=== PATIENT | male | born 1995 | race Hispanic/Latino ===

== ENCOUNTER 2016-06-18 15:13 | Emergency (ER) | payer OTHER ==
[2016-06-18] MEDS ORDERED: ONDANSETRON 4MG/2ML VIAL (J2405) As Ordered ONE (15:40)
[2016-06-18] MEDS ORDERED: MORPHINE 4 MG/ML 1ML SYRINGE As Ordered ONE (15:55)
[2016-06-18 16:06] LABS: MEAN CORPUSCULAR HEMOGLOBIN 30.1 pg (27.0-33.0); MEAN CORPUSCULAR HGB CONC 33.5 g/dl (32.0-36.5); MEAN CORPUSCULAR VOLUME 89.9 fl (80.0-96.0); PLATELET COUNT, AUTOMATED 213 k/mm3 (150-450); RED CELL DISTRIBUTION WIDTH 12.7 % (11.5-14.5); WHITE BLOOD COUNT 13.3 K/mm3 (4.0-10.0)
[2016-06-18 16:23] LABS: ALBUMIN 4.4 GM/DL (3.2-5.2); ALBUMIN/GLOBULIN RATIO 1.33 (1.00-1.93); ALKALINE PHOSPHATASE 94 U/L (45-117); ALT/SGPT 50 U/L (12-78); ANION GAP 5 MEQ/L (8-16); AST/SGOT 48 U/L (15-37); BILIRUBIN,DIRECT 0.2 MG/DL (0.0-0.2); BLOOD UREA NITROGEN 18 MG/DL (7-18); CALCIUM LEVEL 9.3 MG/DL (8.5-10.1); CARBON DIOXIDE LEVEL 30 MEQ/L (21-32); CHLORIDE LEVEL 105 MEQ/L (98-107); GLOMERULAR FILTRATION RATE > 60.0 (>60); GLUCOSE, FASTING 112 MG/DL (70-105); POTASSIUM SERUM 4.6 MEQ/L (3.5-5.1); SODIUM LEVEL 140 MEQ/L (136-145); TOTAL PROTEIN 7.7 GM/DL (6.4-8.2)
[2016-06-18 16:33] LABS: BANDS 2 % (< 11); EOSINOPHILS 1 % (0-5)
--- NOTE | 2016-06-18 17:57 | EDDOCDS ---
Physician Documentation [facility] Name: Sher Bowen Age: 20 yrs Sex: Male : 1995 Arrival Date: 06/18/2016 Time: 15:13 Bed I4 / M4 [facility] Disposition: 06/18/16 17:44 Discharged to Home/Self Care. Impression: Nausea and vomiting, Diarrhea, unspecified. - Condition is Stable. - Discharge Instructions: Food Poisoning, Viral Gastroenteritis. - Prescriptions for ZOFRAN ODT 4 mg Oral - dissolve 1 tablet by ORAL route every 8 hours As needed do not chew, do not swallow whole; 10 tablet. - Medication Reconciliation, Local Pharmacy Hours form. - [facility]; When: Call to arrange an appointment; Reason: Recheck today's complaints. - Problem is new. - Symptoms have improved. Historical: - Allergies: no known allergies; - Home Meds: 1. loperamide 2 mg Oral tab 2 tabs as needed - PMHx: none; - PSHx: none; - Social history: Smoking status: Patient uses tobacco products, light tobacco smoker. No barriers to communication noted, The patient speaks fluent Montserratian, Speaks appropriately for age. - Family history: Not pertinent. - : The pt / caregiver states he / she is not on anticoagulants. Home medication list is obtained from the patient. - Exposure Risk Screening:: None identified. Vital Signs: 06/18 15:15 BP 116 / 62; Pulse 90; Resp 18; Temp 98.6; Pulse Ox 98% ; Weight 92.99 kg / 205.01 lbs; elp Height 6 ft. 4 in. (193.04 cm); 17:16 BP 122 / 58; Pulse 77; Resp 18; Temp 99.4(O); Pulse Ox 100% on R/A; Pain 0/10; jmb 15:15 Body Mass Index 24.95 (92.99 kg, 193.04 cm) elp MDM: 15:39 IV Saline Lock ordered. ar2 15:39 NS 0.9% 1000 ml IV at bolus once ordered. ar2 15:39 Ondansetron 4 mg IVP once ordered. ar2 15:40 CBC with Diff Ordered. EDMS 15:40 MED Profile Ordered. EDMS 15:40 Liver Profile Ordered. EDMS 15:52 morphine 4 mg IVP once ordered. ar2 15:59 LIPASE Ordered. EDMS 16:08 DIFFERENTIAL NO CHARGE Ordered. EDMS 16:41 Financial registration complete. [email or web address] 17:09 [facility] Payment Agreement was scanned into [employer] and attached to record. [email or web address] 17:15 CBC with Diff Reviewed. ar2 17:15 MED Profile Reviewed. ar2 17:15 Liver Profile Reviewed. ar2 17:15 LIPASE Reviewed. ar2 17:15 PLATELET ESTIMATE Reviewed. ar2 17:26 Fluid Challenge ordered. ar2 Administered Medications: 15:52 CANCELLED (Other Intervention Used): morphine 2 mg IVP once ar2 15:53 Drug: NS 0.9% 1000 ml [sodium chloride 0.9 % intravenous solution] Route: IV; Rate: jmb bolus; Site: right antecubital; 15:53 Drug: Ondansetron 4 mg [ondansetron HCl 2 mg/mL intravenous solution (2 mL)] Route: jmb IVP; Site: right antecubital; 15:57 Drug: morphine 4 mg [morphine 4 mg/mL intravenous cartridge (1 mL)] Route: IVP; Site: b right antecubital; Signatures: Dispatcher [employer] EDMS Evens Jiang RN RN mlb1 Jameson Hernández PA-C PAJose ar2 Vitor Rankin RN RN jmb Sammi Ocasio, Reg Reg [email or web address] The chart was reviewed and I authenticate all verbal orders and agree with the evaluation and treatment provided.Corrections: (The following items were deleted from the chart) 15:51 15:39 Fluid Challenge ordered. ar2 ar2 15:52 15:52 morphine 2 mg IVP once ordered. ar2 ar2 15:59 15:55 LIPASE+LAB ordered. EDMS EDMS Attachments: 17:09 [facility] Payment Agreement [email or web address] MTDD
--- NOTE | 2016-06-18 17:57 | EDDOCDS ---
Nurse's Notes [facility] Name: Sher Bowen Age: 20 yrs Sex: Male : 1995 Arrival Date: 06/18/2016 Time: 15:13 Bed I4 / M4 [facility] Diagnosis: Nausea and vomiting;Diarrhea, unspecified Presentation: 06/18 15:16 Presenting complaint: Patient states: N/V/D with lower abdominal pain began this am. mlb1 Adult Sepsis Screening: The patient does not have new or worsening altered mentation. Patient's respiratory rate is less than 22. Systolic blood pressure is greater than 100. Patient has a qSOFA score of 0- Negative Sepsis Screen. Suicide/Homicide risk assessment- the patient denies having any suicidal and/or homicidal ideations and does not present with any other emotional, behavioral or mental health complaints. Status: The patient is an active duty loan services professional. Transition of care: patient was not received from another setting of care. 15:16 Acuity: ARIELLA Level 3 mlb1 15:16 Method Of Arrival: Walkin/Carried/Asstd mlb1 Triage Assessment: 15:18 General: Appears distressed, Behavior is appropriate for age, cooperative. Pain: mlb1 Location: right lower quadrant and left lower quadrant Pain currently is 8 out of 10 on a pain scale. Pt Declines HIV testing. GI: Reports diarrhea, nausea, vomiting. Historical: - Allergies: no known allergies; - Home Meds: 1. loperamide 2 mg Oral tab 2 tabs as needed - PMHx: none; - PSHx: none; - Social history: Smoking status: Patient uses tobacco products, light tobacco smoker. No barriers to communication noted, The patient speaks fluent Kyrgyz, Speaks appropriately for age. - Family history: Not pertinent. - : The pt / caregiver states he / she is not on anticoagulants. Home medication list is obtained from the patient. - Exposure Risk Screening:: None identified. Screenin:54 Screening information is obtained from the patient. Fall risk: No risks identified. jmb Assistance ADL's: requires no assistance with activities of daily living. Abuse/DV Screen: The patient / caregiver reports he/she is: not in a situation that causes fear, pain or injury. Nutritional screening: No deficits noted. home support is adequate. 17:48 Advance Directives: Currently, there is no health care proxy. There is no active DNR jmb order. There is no living will. There is no Power of Account Solutions Analyst. Assessment: 15:54 General: Appears uncomfortable, Behavior is appropriate for age, cooperative. Pain: jmb Location: abdomen and left lower quadrant and right lower quadrant Pain currently is 8 out of 10 on a pain scale. Neurological: Level of Consciousness is awake, alert, obeys commands, Oriented to person, place, time, Plaster Machine Operator are equal bilaterally Speech is normal, Facial symmetry appears normal, Facial symmetry: tongue is midline. Cardiovascular: Capillary refill < 3 seconds Heart tones S1 S2 present Pulses are all present. Rhythm is regular. Respiratory: Airway is patent Respiratory effort is even, unlabored, Respiratory pattern is regular, symmetrical, Breath sounds are clear bilaterally. GI: Abdomen is non- distended Bowel sounds present X 4 quads. Abd is soft X 4 quads. Derm: Skin is normal. Musculoskeletal: Range of motion intact in all extremities. 16:39 General: Appears in no apparent distress, Behavior is appropriate for age, cooperative. jmb Neurological: Level of Consciousness is awake, alert, obeys commands, Oriented to person, place, time. Respiratory: Airway is patent Respiratory effort is even, unlabored, Respiratory pattern is regular, symmetrical. 17:20 General: Appears in no apparent distress, comfortable, Behavior is appropriate for age, jmb cooperative, Patient laying on stretcher, appears comfortable,. appears asleep, easy to arise. NO voiced complaints at this time. . Pain: Denies pain. Neurological: Level of Consciousness is awake, alert, obeys commands, Oriented to person, place, time. Respiratory: Airway is patent Respiratory effort is even, unlabored, Respiratory pattern is regular, symmetrical. 17:48 General: Patient instructed on discharge instructions. Patient asked if there were any b questions regarding dishcarge, patient stated no. IV discontinued per hospital policy. Patient signed discharge instructions. Patient discharged in stable condition. . Vital Signs: 15:15 BP 116 / 62; Pulse 90; Resp 18; Temp 98.6; Pulse Ox 98% ; Weight 92.99 kg; Height 6 ft. elp 4 in. (193.04 cm); 17:16 BP 122 / 58; Pulse 77; Resp 18; Temp 99.4(O); Pulse Ox 100% on R/A; Pain 0/10; jmb 15:15 Body Mass Index 24.95 (92.99 kg, 193.04 cm) elp Vitals: 15:15 Log In Time: June 18, 2016 at 15:13. elp ED Course: 15:14 Patient visited by Neelam Guan PCA. elp 15:14 Patient moved to Waiting elp 15:15 [facility] is Private Physician. elp 15:16 Patient visited by Neelam Guan PCA. elp 15:16 Patient visited by Evens Jiang, RN. mlb1 15:16 Patient moved to Pre RCE elp 15:16 Triage Initiated mlb1 15:18 Patient visited by Evens Jiang, RN. mlb1 15:18 Patient moved to Triage 2 mlb1 15:33 Jameson Hernández PA-C is [facility]. ar2 15:33 Carolann Cornejo MD is Attending Physician. ar2 15:33 Patient visited by Jameson Hernández PA-C. ar2 15:39 Patient moved to I4 / M4 ck1 15:53 Liver Profile Sent. jmb 15:53 MED Profile Sent. jmb 15:54 The patient / caregiver is instructed regarding the plan of care and ED course. jmb 15:54 CBC with Diff Sent. jmb 15:54 Inserted saline lock: 20 gauge in right forearm and blood collected. The patient jmb tolerated the procedure well. Labs drawn. (by ED staff). Sent per order to lab. 15:57 Patient visited by Vitor Rankin RN. jmb 16:01 LIPASE Sent. jmb 16:09 DIFFERENTIAL NO CHARGE Sent. jmb 16:39 Patient visited by Vitor Rankin RN. jmb 17:09 [facility] Payment Agreement was scanned into [employer] and attached to record. [email or web address] 17:20 Patient visited by Vitor Rankin RN. jmb 17:43 [facility] is Referral Physician. ar2 17:48 Discontinued lock intact, bleeding controlled, pressure dressing applied, No jmb redness/swelling at site. No procedures done that require assistance. Administered Medications: 15:52 CANCELLED (Other Intervention Used): morphine 2 mg IVP once ar2 15:53 Drug: NS 0.9% 1000 ml [sodium chloride 0.9 % intravenous solution] Route: IV; Rate: jmb bolus; Site: right antecubital; 15:53 Drug: Ondansetron 4 mg [ondansetron HCl 2 mg/mL intravenous solution (2 mL)] Route: jmb IVP; Site: right antecubital; 15:57 Drug: morphine 4 mg [morphine 4 mg/mL intravenous cartridge (1 mL)] Route: IVP; Site: jmb right antecubital; Order Results: Lab Order: CBC with Diff; SPEC'M 06/18/16 15:49 Test: WHITE BLOOD COUNT; Value: 13.3; Range: 4.0-10.0; Abnormal: Above high normal; Units: K/mm3; Status: F Test: RED BLOOD COUNT; Value: 5.39; Range: 4.30-6.10; Units: M/mm3; Status: F Test: HEMOGLOBIN; Value: 16.2; Range: 14.0-18.0; Units: g/dl; Status: F Test: HEMATOCRIT; Value: 48.4; Range: 42.0-52.0; Units: %; Status: F Test: MEAN CORPUSCULAR VOLUME; Value: 89.9; Range: 80.0-96.0; Units: fl; Status: F Test: MEAN CORPUSCULAR HEMOGLOBIN; Value: 30.1; Range: 27.0-33.0; Units: pg; Status: F Test: MEAN CORPUSCULAR HGB CONC; Value: 33.5; Range: 32.0-36.5; Units: g/dl; Status: F Test: RED CELL DISTRIBUTION WIDTH; Value: 12.7; Range: 11.5-14.5; Units: %; Status: F Test: PLATELET COUNT, AUTOMATED; Value: 213; Range: 150-450; Units: k/mm3; Status: F Test: NEUTROPHILS; Value: 82; Range: 35-75; Abnormal: Above high normal; Units: %; Status: F Test: BANDS; Value: 2; Range: < 11; Units: %; Status: F Test: LYMPHOCYTES; Value: 1; Range: 16-52; Abnormal: Below low normal; Units: %; Status: F Test: MONOCYTES; Value: 12; Range: 0-8; Abnormal: Above high normal; Units: %; Status: F Test: EOSINOPHILS; Value: 1; Range: 0-5; Units: %; Status: F Test: ATYPICAL LYMPH; Value: 2; Range: 0-5; Units: %; Status: F Lab Order: MED Profile; SPEC'06/18/16 15:49 Test: GLUCOSE, FASTING; Value: 112; Range: 70-105; Abnormal: Above high normal; Units: MG/DL; Status: F Test: BLOOD UREA NITROGEN; Value: 18; Range: 7-18; Units: MG/DL; Status: F Test: CREATININE FOR GFR; Value: 1.20; Range: 0.70-1.30; Units: MG/DL; Status: F Test: GLOMERULAR FILTRATION RATE; Value: > 60.0; Range: >60; Status: F Test: SODIUM LEVEL; Value: 140; Range: 136-145; Units: MEQ/L; Status: F Test: POTASSIUM SERUM; Value: 4.6; Range: 3.5-5.1; Units: MEQ/L; Status: F Test: CHLORIDE LEVEL; Value: 105; Range: 98-107; Units: MEQ/L; Status: F Test: CARBON DIOXIDE LEVEL; Value: 30; Range: 21-32; Units: MEQ/L; Status: F Test: ANION GAP; Value: 5; Range: 8-16; Abnormal: Below low normal; Units: MEQ/L; Status: F Test: CALCIUM LEVEL; Value: 9.3; Range: 8.5-10.1; Units: MG/DL; Status: F Test Note: ; Units are mL/min/1.73 m2 Chronic Kidney Disease Staging per NKF: Stage I & II GFR >=60 Normal to Mildly Decreased Stage III GFR 30-59 Moderately Decreased Stage IV GFR 15-29 Severely Decreased Stage V GFR <15 Very Little GFR Left ESRD GFR <15 on FREEDOM OF INFORMATION OFFICER Lab Order: Liver Profile; SPEC'06/18/16 15:49 Test: AST/SGOT; Value: 48; Range: 15-37; Abnormal: Above high normal; Units: U/L; Status: F Test: ALT/SGPT; Value: 50; Range: 12-78; Units: U/L; Status: F Test: ALKALINE PHOSPHATASE; Value: 94; Range: 45-117; Units: U/L; Status: F Test: BILIRUBIN,TOTAL; Value: 1.0; Range: 0.2-1.0; Units: MG/DL; Status: F Test: BILIRUBIN,DIRECT; Value: 0.2; Range: 0.0-0.2; Units: MG/DL; Status: F Test: TOTAL PROTEIN; Value: 7.7; Range: 6.4-8.2; Units: GM/DL; Status: F Test: ALBUMIN; Value: 4.4; Range: 3.2-5.2; Units: GM/DL; Status: F Test: ALBUMIN/GLOBULIN RATIO; Value: 1.33; Range: 1.00-1.93; Status: F Lab Order: LIPASE; SPEC'M 06/18/16 15:49 Test: LIPASE; Value: 69; Range: 73-393; Abnormal: Below low normal; Units: U/L; Status: F Lab Order: PLATELET ESTIMATE; SPEC'M 06/18/16 15:49 Test: PLATELET ESTIMATE; Value: NORMAL; Range: NORMAL; Status: F Outcome: 17:44 Discharge ordered by Provider. ar2 17:48 Discharge Assessment: Patient awake, alert and oriented x 3. No cognitive and/or jmb functional deficits noted. Patient verbalized understanding of disposition instructions. Patient awake and alert. obeys commands, Oriented to person, place and time. Patient verbalized understanding of disposition instructions. Patient has no functional deficits. patient administered narcotics - yes. Pt provided with safe discharge. The following High Risk Discharge criteria are identified: None. Discharged to home ambulatory, with significant other. Condition: stable Condition: improved. Discharge instructions given to patient, Instructed on discharge instructions, follow up and referral plans. medication usage, Demonstrated understanding of instructions, medications, Pt was receptive of discharge instructions/ teaching. Prescriptions given X 1. No special radiology studies were completed. Property sent home with patient. 17:56 Patient left the ED. wilburb Signatures: Evens Jiang RN RN mlb1 Carolynn SimmonsRN RN ck1 Jameson Hernández PA-C PA-C ar2 Neelam Guan, WIRE TURNING MACHINE OPERATOR WIRE TURNING MACHINE OPERATOR Vitor Bray RN RN jmb Sorenson, Kimberly, Reg Reg [email or web address] Corrections: (The following items were deleted from the chart) 15:59 15:57 LIPASE+LAB sent. jmb EDMS MTDD
--- NOTE | 2016-06-20 18:58 | EDDOCDS ---
Nurse's Notes [facility] Name: Sher Bowen Age: 20 yrs Sex: Male : 1995 Arrival Date: 06/18/2016 Time: 15:13 Bed I4 / M4 Private [facility] Diagnosis: Nausea and vomiting;Diarrhea, unspecified Presentation: 06/18 15:16 Presenting complaint: Patient states: N/V/D with lower abdominal pain began this am. mlb1 Adult Sepsis Screening: The patient does not have new or worsening altered mentation. Patient's respiratory rate is less than 22. Systolic blood pressure is greater than 100. Patient has a qSOFA score of 0- Negative Sepsis Screen. Suicide/Homicide risk assessment- the patient denies having any suicidal and/or homicidal ideations and does not present with any other emotional, behavioral or mental health complaints. Status: The patient is an active duty business services representative. Transition of care: patient was not received from another setting of care. 15:16 Acuity: ARIELLA Level 3 mlb1 15:16 Method Of Arrival: Walkin/Carried/Asstd mlb1 Triage Assessment: 15:18 General: Appears distressed, Behavior is appropriate for age, cooperative. Pain: mlb1 Location: right lower quadrant and left lower quadrant Pain currently is 8 out of 10 on a pain scale. Pt Declines HIV testing. GI: Reports diarrhea, nausea, vomiting. Historical: - Allergies: no known allergies; - Home Meds: 1. loperamide 2 mg Oral tab 2 tabs as needed - PMHx: none; - PSHx: none; - Social history: Smoking status: Patient uses tobacco products, light tobacco smoker. No barriers to communication noted, The patient speaks fluent Thai, Speaks appropriately for age. - Family history: Not pertinent. - : The pt / caregiver states he / she is not on anticoagulants. Home medication list is obtained from the patient. - Exposure Risk Screening:: None identified. Screenin:54 Screening information is obtained from the patient. Fall risk: No risks identified. jmb Assistance ADL's: requires no assistance with activities of daily living. Abuse/DV Screen: The patient / caregiver reports he/she is: not in a situation that causes fear, pain or injury. Nutritional screening: No deficits noted. home support is adequate. 17:48 Advance Directives: Currently, there is no health care proxy. There is no active DNR jmb order. There is no living will. There is no Power of Pipe Line Inspector. Assessment: 15:54 General: Appears uncomfortable, Behavior is appropriate for age, cooperative. Pain: jmb Location: abdomen and left lower quadrant and right lower quadrant Pain currently is 8 out of 10 on a pain scale. Neurological: Level of Consciousness is awake, alert, obeys commands, Oriented to person, place, time, Patient Accounting Representative are equal bilaterally Speech is normal, Facial symmetry appears normal, Facial symmetry: tongue is midline. Cardiovascular: Capillary refill < 3 seconds Heart tones S1 S2 present Pulses are all present. Rhythm is regular. Respiratory: Airway is patent Respiratory effort is even, unlabored, Respiratory pattern is regular, symmetrical, Breath sounds are clear bilaterally. GI: Abdomen is non- distended Bowel sounds present X 4 quads. Abd is soft X 4 quads. Derm: Skin is normal. Musculoskeletal: Range of motion intact in all extremities. 16:39 General: Appears in no apparent distress, Behavior is appropriate for age, cooperative. jmb Neurological: Level of Consciousness is awake, alert, obeys commands, Oriented to person, place, time. Respiratory: Airway is patent Respiratory effort is even, unlabored, Respiratory pattern is regular, symmetrical. 17:20 General: Appears in no apparent distress, comfortable, Behavior is appropriate for age, jmb cooperative, Patient laying on stretcher, appears comfortable,. appears asleep, easy to arise. NO voiced complaints at this time. . Pain: Denies pain. Neurological: Level of Consciousness is awake, alert, obeys commands, Oriented to person, place, time. Respiratory: Airway is patent Respiratory effort is even, unlabored, Respiratory pattern is regular, symmetrical. 17:48 General: Patient instructed on discharge instructions. Patient asked if there were any b questions regarding dishcarge, patient stated no. IV discontinued per hospital policy. Patient signed discharge instructions. Patient discharged in stable condition. . Vital Signs: 15:15 BP 116 / 62; Pulse 90; Resp 18; Temp 98.6; Pulse Ox 98% ; Weight 92.99 kg; Height 6 ft. elp 4 in. (193.04 cm); 17:16 BP 122 / 58; Pulse 77; Resp 18; Temp 99.4(O); Pulse Ox 100% on R/A; Pain 0/10; jmb 15:15 Body Mass Index 24.95 (92.99 kg, 193.04 cm) [facility] Vitals: 15:15 Log In Time: June 18, 2016 at 15:13. [facility] ED Course: 15:14 Patient visited by Neelam Guan PCA. elp 15:14 Patient moved to Waiting elp 15:15 [facility] is Private Physician. elp 15:16 Patient visited by Neelam Guan PCA. elp 15:16 Patient visited by Evens Jiang, KENYA. mlb1 15:16 Patient moved to Pre RCE elp 15:16 Triage Initiated mlb1 15:18 Patient visited by Evens Jiang, RN. mlb1 15:18 Patient moved to Triage 2 mlb1 15:33 [facility] ar2 15:33 Carolann Cornejo MD is Attending Physician. ar2 15:33 Patient visited by Jameson Hernández PA-C. ar2 15:39 Patient moved to I4 / M4 ck1 15:53 Liver Profile Sent. jmb 15:53 MED Profile Sent. jmb 15:54 The patient / caregiver is instructed regarding the plan of care and ED course. jmb 15:54 CBC with Diff Sent. jmb 15:54 Inserted saline lock: 20 gauge in right forearm and blood collected. The patient jmb tolerated the procedure well. Labs drawn. (by ED staff). Sent per order to lab. 15:57 Patient visited by Vitor Rankin RN. jmb 16:01 LIPASE Sent. jmb 16:09 DIFFERENTIAL NO CHARGE Sent. jmb 16:39 Patient visited by Vitor Rankin RN. jmb 17:09 [facility] Payment Agreement was scanned into [employer] and attached to record. ks16 17:20 Patient visited by Vitor Rankin RN. jmb 17:43 [facility] is Referral Physician. ar2 17:48 Discontinued lock intact, bleeding controlled, pressure dressing applied, No jmb redness/swelling at site. No procedures done that require assistance. 22:03 T-Sheet-- Draft Copy was scanned into [employer] and attached to record. klr Administered Medications: 15:52 CANCELLED (Other Intervention Used): morphine 2 mg IVP once ar2 15:53 Drug: NS 0.9% 1000 ml [sodium chloride 0.9 % intravenous solution] Route: IV; Rate: jmb bolus; Site: right antecubital; 15:53 Drug: Ondansetron 4 mg [ondansetron HCl 2 mg/mL intravenous solution (2 mL)] Route: jmb IVP; Site: right antecubital; 15:57 Drug: morphine 4 mg [morphine 4 mg/mL intravenous cartridge (1 mL)] Route: IVP; Site: jmb right antecubital; Order Results: Lab Order: CBC with Diff; SPEC'M 06/18/16 15:49 Test: WHITE BLOOD COUNT; Value: 13.3; Range: 4.0-10.0; Abnormal: Above high normal; Units: K/mm3; Status: F Test: RED BLOOD COUNT; Value: 5.39; Range: 4.30-6.10; Units: M/mm3; Status: F Test: HEMOGLOBIN; Value: 16.2; Range: 14.0-18.0; Units: g/dl; Status: F Test: HEMATOCRIT; Value: 48.4; Range: 42.0-52.0; Units: %; Status: F Test: MEAN CORPUSCULAR VOLUME; Value: 89.9; Range: 80.0-96.0; Units: fl; Status: F Test: MEAN CORPUSCULAR HEMOGLOBIN; Value: 30.1; Range: 27.0-33.0; Units: pg; Status: F Test: MEAN CORPUSCULAR HGB CONC; Value: 33.5; Range: 32.0-36.5; Units: g/dl; Status: F Test: RED CELL DISTRIBUTION WIDTH; Value: 12.7; Range: 11.5-14.5; Units: %; Status: F Test: PLATELET COUNT, AUTOMATED; Value: 213; Range: 150-450; Units: k/mm3; Status: F Test: NEUTROPHILS; Value: 82; Range: 35-75; Abnormal: Above high normal; Units: %; Status: F Test: BANDS; Value: 2; Range: < 11; Units: %; Status: F Test: LYMPHOCYTES; Value: 1; Range: 16-52; Abnormal: Below low normal; Units: %; Status: F Test: MONOCYTES; Value: 12; Range: 0-8; Abnormal: Above high normal; Units: %; Status: F Test: EOSINOPHILS; Value: 1; Range: 0-5; Units: %; Status: F Test: ATYPICAL LYMPH; Value: 2; Range: 0-5; Units: %; Status: F Lab Order: MED Profile; SPEC' 06/18/16 15:49 Test: GLUCOSE, FASTING; Value: 112; Range: 70-105; Abnormal: Above high normal; Units: MG/DL; Status: F Test: BLOOD UREA NITROGEN; Value: 18; Range: 7-18; Units: MG/DL; Status: F Test: CREATININE FOR GFR; Value: 1.20; Range: 0.70-1.30; Units: MG/DL; Status: F Test: GLOMERULAR FILTRATION RATE; Value: > 60.0; Range: >60; Status: F Test: SODIUM LEVEL; Value: 140; Range: 136-145; Units: MEQ/L; Status: F Test: POTASSIUM SERUM; Value: 4.6; Range: 3.5-5.1; Units: MEQ/L; Status: F Test: CHLORIDE LEVEL; Value: 105; Range: 98-107; Units: MEQ/L; Status: F Test: CARBON DIOXIDE LEVEL; Value: 30; Range: 21-32; Units: MEQ/L; Status: F Test: ANION GAP; Value: 5; Range: 8-16; Abnormal: Below low normal; Units: MEQ/L; Status: F Test: CALCIUM LEVEL; Value: 9.3; Range: 8.5-10.1; Units: MG/DL; Status: F Test Note: ; Units are mL/min/1.73 m2 Chronic Kidney Disease Staging per NKF: Stage I & II GFR >=60 Normal to Mildly Decreased Stage III GFR 30-59 Moderately Decreased Stage IV GFR 15-29 Severely Decreased Stage V GFR <15 Very Little GFR Left ESRD GFR <15 on DAIRY HELPER Lab Order: Liver Profile; [facility]' 06/18/16 15:49 Test: AST/SGOT; Value: 48; Range: 15-37; Abnormal: Above high normal; Units: U/L; Status: F Test: ALT/SGPT; Value: 50; Range: 12-78; Units: U/L; Status: F Test: ALKALINE PHOSPHATASE; Value: 94; Range: 45-117; Units: U/L; Status: F Test: BILIRUBIN,TOTAL; Value: 1.0; Range: 0.2-1.0; Units: MG/DL; Status: F Test: BILIRUBIN,DIRECT; Value: 0.2; Range: 0.0-0.2; Units: MG/DL; Status: F Test: TOTAL PROTEIN; Value: 7.7; Range: 6.4-8.2; Units: GM/DL; Status: F Test: ALBUMIN; Value: 4.4; Range: 3.2-5.2; Units: GM/DL; Status: F Test: ALBUMIN/GLOBULIN RATIO; Value: 1.33; Range: 1.00-1.93; Status: F Lab Order: LIPASE; SPEC'M 06/18/16 15:49 Test: LIPASE; Value: 69; Range: 73-393; Abnormal: Below low normal; Units: U/L; Status: F Lab Order: PLATELET ESTIMATE; SPEC'M 06/18/16 15:49 Test: PLATELET ESTIMATE; Value: NORMAL; Range: NORMAL; Status: F Outcome: 17:44 Discharge ordered by Provider. ar2 17:48 Discharge Assessment: Patient awake, alert and oriented x 3. No cognitive and/or jmb functional deficits noted. Patient verbalized understanding of disposition instructions. Patient awake and alert. obeys commands, Oriented to person, place and time. Patient verbalized understanding of disposition instructions. Patient has no functional deficits. patient administered narcotics - yes. Pt provided with safe discharge. The following High Risk Discharge criteria are identified: None. Discharged to home ambulatory, with significant other. Condition: stable Condition: improved. Discharge instructions given to patient, Instructed on discharge instructions, follow up and referral plans. medication usage, Demonstrated understanding of instructions, medications, Pt was receptive of discharge instructions/ teaching. Prescriptions given X 1. No special radiology studies were completed. Property sent home with patient. 17:56 Patient left the ED. angélica Signatures: Evens Jiang RN RN mlb1 Carolynn SimmonsRN RN ck1 Jameson Hernández PA-C PAJose ar2 Neelam Guan, YARELI CUT TOBACCO BULKER elp Rankin,Vitor,Sammi Tanner RN, Reg Reg ks16 Asha Gray Corrections: (The following items were deleted from the chart) 15:59 15:57 LIPASE+LAB sent. angélica PEDROZA Chart Complete MTDD
--- NOTE | 2016-06-20 18:58 | EDDOCDS ---
Physician Documentation [facility] Name: Sher Bowen Age: 20 yrs Sex: Male : 1995 Arrival Date: 06/18/2016 Time: 15:13 Bed I4 / M4 [facility] Disposition: 06/18/16 17:44 Discharged to Home/Self Care. Impression: Nausea and vomiting, Diarrhea, unspecified. - Condition is Stable. - Discharge Instructions: Food Poisoning, Viral Gastroenteritis. - Prescriptions for ZOFRAN ODT 4 mg Oral - dissolve 1 tablet by ORAL route every 8 hours As needed do not chew, do not swallow whole; 10 tablet. - Medication Reconciliation, Local Pharmacy Hours form. - [facility]; When: Call to arrange an appointment; Reason: Recheck today's complaints. - Problem is new. - Symptoms have improved. Historical: - Allergies: no known allergies; - Home Meds: 1. loperamide 2 mg Oral tab 2 tabs as needed - PMHx: none; - PSHx: none; - Social history: Smoking status: Patient uses tobacco products, light tobacco smoker. No barriers to communication noted, The patient speaks fluent Lithuanian, Speaks appropriately for age. - Family history: Not pertinent. - : The pt / caregiver states he / she is not on anticoagulants. Home medication list is obtained from the patient. - Exposure Risk Screening:: None identified. Vital Signs: 06/18 15:15 BP 116 / 62; Pulse 90; Resp 18; Temp 98.6; Pulse Ox 98% ; Weight 92.99 kg / 205.01 lbs; elp Height 6 ft. 4 in. (193.04 cm); 17:16 BP 122 / 58; Pulse 77; Resp 18; Temp 99.4(O); Pulse Ox 100% on R/A; Pain 0/10; jmb 15:15 Body Mass Index 24.95 (92.99 kg, 193.04 cm) elp MDM: 15:39 IV Saline Lock ordered. ar2 15:39 NS 0.9% 1000 ml IV at bolus once ordered. ar2 15:39 Ondansetron 4 mg IVP once ordered. ar2 15:40 CBC with Diff Ordered. EDMS 15:40 MED Profile Ordered. EDMS 15:40 Liver Profile Ordered. EDMS 15:52 morphine 4 mg IVP once ordered. ar2 15:59 LIPASE Ordered. EDMS 16:08 DIFFERENTIAL NO CHARGE Ordered. EDMS 16:41 Financial registration complete. [email or web address] 17:09 [facility] Payment Agreement was scanned into [employer] and attached to record. ks16 17:15 CBC with Diff Reviewed. ar2 17:15 MED Profile Reviewed. ar2 17:15 Liver Profile Reviewed. ar2 17:15 LIPASE Reviewed. ar2 17:15 PLATELET ESTIMATE Reviewed. ar2 17:26 Fluid Challenge ordered. ar2 22:03 T-Sheet-- Draft Copy was scanned into [employer] and attached to record. klr Administered Medications: 15:52 CANCELLED (Other Intervention Used): morphine 2 mg IVP once ar2 15:53 Drug: NS 0.9% 1000 ml [sodium chloride 0.9 % intravenous solution] Route: IV; Rate: jmb bolus; Site: right antecubital; 15:53 Drug: Ondansetron 4 mg [ondansetron HCl 2 mg/mL intravenous solution (2 mL)] Route: jmb IVP; Site: right antecubital; 15:57 Drug: morphine 4 mg [morphine 4 mg/mL intravenous cartridge (1 mL)] Route: IVP; Site: b right antecubital; Signatures: Dispatcher [employer] EDWI Evens Jiang RN RN mlb1 Jameson Hernández, PAKassandraC PA-C ar2 Vitor Rankin RN RN jmb Sammi Ocasio, Reg Reg ks16 Asha Gray klr The chart was reviewed and I authenticate all verbal orders and agree with the evaluation and treatment provided.Corrections: (The following items were deleted from the chart) 15:51 15:39 Fluid Challenge ordered. ar2 ar2 15:52 15:52 morphine 2 mg IVP once ordered. ar2 ar2 15:59 15:55 LIPASE+LAB ordered. EDMS EDMS Attachments: 17:09 [facility] Payment Agreement [email or web address] 22:03 T-Sheet-- Draft Copy klr Chart Complete MTDD
--- NOTE | 2016-06-20 18:58 | EDDOCDS ---
Physician Documentation [facility] Name: Sher Bowen Age: 20 yrs Sex: Male : 1995 Arrival Date: 06/18/2016 Time: 15:13 Bed I4 / M4 Private [facility] Disposition: 06/18/16 17:44 Discharged to Home/Self Care. Impression: Nausea and vomiting, Diarrhea, unspecified. - Condition is Stable. - Discharge Instructions: Food Poisoning, Viral Gastroenteritis. - Prescriptions for ZOFRAN ODT 4 mg Oral - dissolve 1 tablet by ORAL route every 8 hours As needed do not chew, do not swallow whole; 10 tablet. - Medication Reconciliation, Local Pharmacy Hours form. - [facility]; When: Call to arrange an appointment; Reason: Recheck today's complaints. - Problem is new. - Symptoms have improved. Historical: - Allergies: no known allergies; - Home Meds: 1. loperamide 2 mg Oral tab 2 tabs as needed - PMHx: none; - PSHx: none; - Social history: Smoking status: Patient uses tobacco products, light tobacco smoker. No barriers to communication noted, The patient speaks fluent Anguillan, Speaks appropriately for age. - Family history: Not pertinent. - : The pt / caregiver states he / she is not on anticoagulants. Home medication list is obtained from the patient. - Exposure Risk Screening:: None identified. Vital Signs: 06/18 15:15 BP 116 / 62; Pulse 90; Resp 18; Temp 98.6; Pulse Ox 98% ; Weight 92.99 kg / 205.01 lbs; elp Height 6 ft. 4 in. (193.04 cm); 17:16 BP 122 / 58; Pulse 77; Resp 18; Temp 99.4(O); Pulse Ox 100% on R/A; Pain 0/10; jmb 15:15 Body Mass Index 24.95 (92.99 kg, 193.04 cm) elp MDM: 15:39 IV Saline Lock ordered. ar2 15:39 NS 0.9% 1000 ml IV at bolus once ordered. ar2 15:39 Ondansetron 4 mg IVP once ordered. ar2 15:40 CBC with Diff Ordered. EDMS 15:40 MED Profile Ordered. EDMS 15:40 Liver Profile Ordered. EDMS 15:52 morphine 4 mg IVP once ordered. ar2 15:59 LIPASE Ordered. EDMS 16:08 DIFFERENTIAL NO CHARGE Ordered. EDMS 16:41 Financial registration complete. [email or web address] 17:09 [facility]CLUD[facility] THE [facility] Payment Agreement was scanned into [employer] and attached to record. ks16 17:15 CBC with Diff Reviewed. ar2 17:15 MED Profile Reviewed. ar2 17:15 Liver Profile Reviewed. ar2 17:15 LIPASE Reviewed. ar2 17:15 PLATELET ESTIMATE Reviewed. ar2 17:26 Fluid Challenge ordered. ar2 22:03 T-Sheet-- Draft Copy was scanned into [employer] and attached to record. klr Administered Medications: 15:52 CANCELLED (Other Intervention Used): morphine 2 mg IVP once ar2 15:53 Drug: NS 0.9% 1000 ml [sodium chloride 0.9 % intravenous solution] Route: IV; Rate: jmb bolus; Site: right antecubital; 15:53 Drug: Ondansetron 4 mg [ondansetron HCl 2 mg/mL intravenous solution (2 mL)] Route: jmb IVP; Site: right antecubital; 15:57 Drug: morphine 4 mg [morphine 4 mg/mL intravenous cartridge (1 mL)] Route: IVP; Site: b right antecubital; Signatures: Dispatcher [employer] EDWI Evens Jiang RN RN mlb1 Jameson Hernández, PAKassandraC PA-C ar2 Vitor Rankin RN RN jmb Sammi Ocasio, Reg Reg ks16 Asha Gray klr The chart was reviewed and I authenticate all verbal orders and agree with the evaluation and treatment provided.Corrections: (The following items were deleted from the chart) 15:51 15:39 Fluid Challenge ordered. ar2 ar2 15:52 15:52 morphine 2 mg IVP once ordered. ar2 ar2 15:59 15:55 LIPASE+LAB ordered. EDMS EDMS Attachments: 17:09 [facility] INCLUDES THE [facility] Payment Agreement [email or web address] 22:03 T-Sheet-- Draft Copy klr Chart Complete MTDD
== END 2016-06-18 17:56 | disposition home or self-care (01) ==
LOC: M ED 15:13
DX: R11.2 Nausea with vomiting, unspecified (principal); R19.7 Diarrhea, unspecified; F17.210 Nicotine dependence, cigarettes, uncomplicated
CPT/HCPCS: 36415; 80048; 80076; 83690; 85025; 96374; 96375; 99284; J2405